=== PATIENT | female | born 1955 | race Caucasian/White ===

== ENCOUNTER 2020-02-13 04:09 | Inpatient (IN) | payer MEDICARE ==
[2020-02-13] MEDS ORDERED: KETAMINE HCL INJ 500 MG/10 ML VIAL IV ONE ×2 (04:16)
--- NOTE | 2020-02-13 04:20 | ER Document Report ---
ED Respiratory Problem - General Stated Complaint: DIFFICULTY BREATHING Time Seen by Provider: 02/13/20 04:18 Notes: Patient is a 64-year-old female who comes emergency department by EMS for chief complaint of respiratory distress. EMS reports patient was 68% oxygen sa turation on room air, diaphoretic, speaking in one-word sentences. Patient was given 125 mg Solu-Medrol, DuoNeb, 0.3 mg IM epinephrine, and placed on CPAP. Patient became listless and then stopped speaking, after she became unresponsive patient was intubated with 7.5 ET tube, she was given 70 mg of ketamine and 70 mg of succinylcholine. Patient is not on home oxygen per EMS, they were unable to provide other medical history except that patient was "seen earlier today and cardioverted out of a rhythm before being discharged home". - Related Data Allergies/Adverse Reactions: No Known Allergies Allergy (Unverified 02/13/20 06:22) Past Medical History - General Information source: Emergency Med Personnel - Social History Smoking Status: Current Every Day Smoker Lives with: Family Family History: Other - unable to ask - Past Medical History Cardiac Medical History: Reports: Hx Atrial Fibrillation Pulmonary Medical History: Reports: Hx Asthma, Hx COPD Psychiatric Medical History: Reports: Hx Anxiety Review of Systems - Review of Systems Constitutional: No symptoms reported EENT: No symptoms reported Cardiovascular: See HPI Respiratory: See HPI Gastrointestinal: No symptoms reported Genitourinary: No symptoms reported Female Genitourinary: No symptoms reported Musculoskeletal: No symptoms reported Skin: No symptoms reported Hematologic/Lymphatic: No symptoms reported Neurological/Psychological: No symptoms reported Physical Exam - Vital signs Vitals: Temp Pulse Resp BP Pulse Ox 98.6 F 79 18 83/53 L 93 02/13/20 04:10 02/13/20 04:10 02/13/20 04:10 02/13/20 04:10 02/13/20 04:10 - Notes Notes: GENERAL: Patient is intubated with bag valve respirations being performed. HEAD: Normocephalic, atraumatic. EYES: Pupils equal, round, and reactive to light NECK: Trachea midline. No lymphadenopathy. LUNGS: Clear to auscultation bilaterally, no wheezes, rales, or rhonchi. HEART: Regular rate and rhythm. No murmur ABDOMEN: Soft, non-tender. Non-distended. EXTREMITIES: No edema, normal radial and dorsalis pedis pulses bilaterally. No cyanosis. NEUROLOGICAL: Patient intubated on the ventilator SKIN: Warm, dry, normal turgor. No rashes or lesions noted. Course - Re-evaluation Re-evalutation: Patient doing well on the vent with good oxygenation with a good Pleth. Patient is not tachycardic, initial blood pressure was unremarkable but unfortunately patient became very awake, agitated, patient had to be placed in soft restraints, given ketamine, she quickly awoke from this as well, she was placed on a Versed drip and this helped but then patient became hypotensive. Dr. Carmona recommends continue Versed drip and start Levophed for pressure support, central line will be placed. Chest x-ray showing infiltrate suggesting pneumonia, ET tube in good position. CBC shows mild leukocytosis with elevation of neutrophils but no bandemia. Chemistry nonspecific. Blood gas shows respiratory acidosis with low pH and elevated CO2. Initial report was unclear if patient had been admitted to [facility] or simply cardioverted and discharged home, she was started on cefepime and vancomycin. Blood cultures pending. Lactic acid is 4.2. I spoke with daughter, she states that patient is on Xarelto, she took 1 mg Klonopin tonight to help her sleep, she states she was not drinking alcohol, did not have any symptoms before going to bed that she knew, did not have any known fevers or exposures to COVID. She states she will go home and get the rest of her medications and come back. Because patient is on a blood thinner I did place a femoral central line instead of an IJ. Called and spoke with Amadou Ayoub NP resolution expert for the ICU, patient accepted to the ICU. - Vital Signs Vital signs: Temp Pulse Resp BP Pulse Ox 98.6 F 79 18 83/53 L 95 02/13/20 04:10 02/13/20 04:10 02/13/20 04:10 02/13/20 04:10 02/13/20 05:08 - Laboratory Result Diagrams: 02/13/20 04:15 02/13/20 04:15 Laboratory results interpreted by me: 02/13/20 02/13/20 02/13/20 04:15 04:15 04:15 WBC 14.8 H Absolute Lymphs (auto) 6.4 H PT 19.0 H Carbonic Acid ABG pH ABG pCO2 ABG pO2 Potassium 5.1 H Est GFR (MDRD) Non-Af 56 L Glucose 274 H POC Glucose Lactic Acid Calcium 8.3 L AST 173 H ALT 101 H 02/13/20 02/13/20 02/13/20 04:15 04:30 04:38 WBC Absolute Lymphs (auto) PT Carbonic Acid 1.91 H ABG pH 7.17 L* ABG pCO2 63.5 H ABG pO2 109.3 H Potassium Est GFR (MDRD) Non-Af Glucose POC Glucose 248 H Lactic Acid 4.2 H Calcium AST ALT Procedures - Central Line Right femoral Central line pre-insertion: Sterile PPE donned, Chloraprep applied, Sterile drapes applied Central line lumen type: Triple Ultrasound guided: Yes Line secured with sutures: Yes Central line post-insertion: Blood return from lumens, Biopatch applied, Sutured, Sterile dressing applied Number of attempts: 1 Complications: No Critical Care Note - Critical Care Note Total time excluding time spent on procedures (mins): 40 - Respiratory failure, pneumonia, septic shock Comments: Please allow 40 minutes of critical care time for evaluation and management patient with respiratory failure, patient on vent, patient requiring sedation, patient became hypotensive and required both sedation adjustments and blood pressure support with Levophed. Time spent discussing with family member and admitting to the ICU. Discharge - Discharge Clinical Impression: Septic shock Acute respiratory failure Qualifiers: Respiratory failure complication: hypoxia and hypercapnia Qualified Code(s): J96.01 - Acute respiratory failure with hypoxia; J96.02 - Acute respiratory failure with hypercapnia Condition: Serious Disposition: ADMITTED INPATIENT Admitting Provider: Kiel (Alum Operator) - Amadou Proctor NP Unit Admitted: ICU
[2020-02-13] MEDS ORDERED: KETAMINE HCL INJ 500 MG/10 ML VIAL IV PRN (04:31)
[2020-02-13] MEDS ORDERED: NORMAL SALINE 1000 ML 1,000 ML IV ONE ×2 (04:36→04:47)
[2020-02-13 04:43] LABS: ABSOLUTE BASOPHILS # (AUTO) 0.2 10^3/uL (0.0-0.2); ABSOLUTE EOSINOPHILS # (AUTO) 0.3 10^3/uL (0.0-0.6); ABSOLUTE LYMPHOCYTES (AUTO) 6.4 10^3/uL (0.5-4.7); ABSOLUTE MONOCYTES (AUTO) 0.9 10^3/uL (0.1-1.4); ABSOLUTE NEUT (AUTO) 7.1 10^3/uL (1.7-8.2); EOSINOPHILS % (AUTO) 1.7 % (0-6); HEMOGLOBIN 13.3 g/dL (12.0-15.5); LYMPHOCYTES % (AUTO) 43.4 % (13-45); MEAN CORPUSCULAR HEMOGLOBIN 30.3 pg (27.0-33.4); MEAN CORPUSCULAR HGB CONC 32.4 g/dL (32.0-36.0); MEAN CORPUSCULAR VOLUME 94 fl (80-97); MONOCYTES % (AUTO) 6.2 % (3-13); PLATELET COUNT 364 10^3/uL (150-450); RED BLOOD COUNT 4.38 10^6/uL (3.72-5.28); RED CELL DISTRIBUTION WIDTH 13.6 % (11.5-14.0); SEGMENTED NEUTROPHILS % (AUTO) 47.7 % (42-78); TOTAL CELLS COUNTED % (AUTO) 100 %; WHITE BLOOD COUNT 14.8 10^3/uL (4.0-10.5)
[2020-02-13 04:49] LABS: INTERNATIONAL RATION (INR) 1.58
--- NOTE | 2020-02-13 04:53 | RADIOLOGY REPORT (SQ) ---
EXAM DESCRIPTION: XR CHEST 1 VIEW COMPLETED DATE/TME: 02/13/2020 04:14 CLINICAL HISTORY: 64 years, Female, SOB, post ETT COMPARISON: None. NUMBER OF VIEWS: 1 TECHNIQUE: Portable chest LIMITATIONS: None. FINDINGS: Heart size upper limits of normal. Endotracheal tube with the tip 3.4 cm above the anamika. Enteric tube, the tip extends into the stomach. No pneumothorax. Elevation of the right hemidiaphragm. Tiny right effusion and/or pleural thickening Extensive airspace opacities left hemithorax. Surgical clips left axilla. Osteopenia. IMPRESSION: Endotracheal and enteric tubes in place. Airspace opacities throughout the left hemithorax. Tiny right effusion and/or pleural thickening. copyright 2010 [employer]- All Rights Reserved
[2020-02-13] MEDS ORDERED: NOREPINEPHRINE BITARTRATE INJ/PF 4 MG/4 ML SDV IV ONE (04:54)
[2020-02-13] MEDS ORDERED: DEXTROSE 5%-WATER 250 ML with NOREPINEPHRINE BITARTRATE 4 MG IV PRN ×2 (04:55)
[2020-02-13 05:00] LABS: ARTERIAL BLOOD BASE EXCESS -6.6 mmol/L; ARTERIAL BLOOD FIO2 100%; ARTERIAL BLOOD H2CO3 1.91 mmol/L (1.05-1.35); ARTERIAL BLOOD HCO3 22.8 mmol/L (20-24); ARTERIAL BLOOD O2 SATURATION 96.6 % (94-98); ARTERIAL BLOOD PCO2 63.5 mmHg (35-45); ARTERIAL BLOOD PO2 109.3 mmHg (80-100); ARTERIAL BLOOD TOTAL CO2 24.7 mmol/L (21-25)
[2020-02-13] MEDS ORDERED: CEFEPIME 2 GM/D5W RTU 2 GM/50 ML RTUPB IV ONE (05:00)
[2020-02-13 05:02] LABS: ARTERIAL BLOOD PH 7.17 (7.35-7.45)
[2020-02-13] MEDS: MIDAZOLAM HCL 50 MG/100 ML RTUINJ IV PRN ×2 (05:09→09:52)
[2020-02-13 05:22] LABS: ALBUMIN 3.8 g/dL (3.5-5.0); ALKALINE PHOSPHATASE 86 U/L (38-126); ANION GAP 10 (5-19); ASPARTATE AMINO TRANSFERASE 173 U/L (14-36); BILIRUBIN,TOTAL 0.6 mg/dL (0.2-1.3); BLOOD UREA NITROGEN 18 mg/dL (7-20); CALCIUM 8.3 mg/dL (8.4-10.2); CARBON DIOXIDE 23 mmol/L (22-30); CHLORIDE 104 mmol/L (98-107); GLUCOSE 274 mg/dL (75-110); TOTAL PROTEIN 6.3 g/dL (6.3-8.2)
[2020-02-13 05:23] LABS: POTASSIUM 5.1 mmol/L (3.6-5.0)
[2020-02-13] MEDS ORDERED: VANCOMYCIN HCL INJ 1000 MG VIAL IV ONE (05:24)
--- NOTE | 2020-02-13 06:23 | CRITICAL CARE ADMISSION REPORT ---
HPI Date:: 02/13/20 Time:: 06:01 Reason for ICU Reason:: Respiratory Failure Admission Date/Time & PCP: Admission Date/Time: Primary Care Provider: HPI: Ms. Cheung is a 64-year-old female past medical history of asthma and atrial fibrillation on Xarelto at home status post cardioversion on 02/12/2020. Presents to the emergency department by EMS for respiratory distress. EMS reports the patient was found diaphoretic speaking in one-word sentences with an O2 saturation of 68% on room air. She was given 125 mg of Solu-Medrol, DuoNeb, and 0.3 mg of IM epinephrine and placed on CPAP. Upon arrival to the ED patient became unresponsive and subsequently was intubated with a 7.5 ET tube. She was given 70 mg of ketamine and 70 mg of succinylcholine. She was placed on propofol for sedation and became hypotensive at which time her sedation was switched to Versed drip. She remained hypotensive and started on Levophed. Her lactate in the ED was 4.2 and she was given 2 L of normal saline bolus. Chest x-ray revealed extensive airspace opacities in the left hemithorax. She was given 1 dose of vancomycin, and is admitted to the ICU for management of her sepsis. - Diagnosis/Plan (1) Sepsis Qualifiers: Sepsis type: sepsis due to unspecified organism Severe sepsis acute organ dysfunction type: acute respiratory failure Acute respiratory failure type: with hypoxia Is this a current diagnosis for this admission?: Yes Plan: Start cefepime and linezolid. Volume resuscitate Repeat lactate at 10 AM (2) Atrial fibrillation Qualifiers: Atrial fibrillation type: unspecified Qualified Code(s): I48.91 - Unspecified atrial fibrillation Is this a current diagnosis for this admission?: Yes Plan: Status post cardioversion 02/12/2020 currently normal sinus rhythm with frequent PVCs On Xarelto at home Patient is intubated will start low-dose heparin drip as clots post cardioversion is highest in the post 48 hours Past Medical History Cardiac Medical History: Reports: Atrial Fibrillation Pulmonary Medical History: Reports: Asthma, Chronic Obstructive Pulmonary Disease (COPD) Social/Family History - Social History Smoking Status: Current Every Day Smoker Review of Systems ROS unobtainable: Due to endotracheal tube Physical Exam Vital Signs: Temp Pulse Resp BP Pulse Ox 98.6 F 79 18 83/53 L 95 02/13/20 04:10 02/13/20 04:10 02/13/20 04:10 02/13/20 04:10 02/13/20 05:08 Intake & Output 02/11/20 02/12/20 02/13/20 06:59 06:59 06:59 Intake Total 1000 Balance 1000 Weight 78.018 kg Weight/Height Weight 78.018 kg Height 5 ft 5 in General appearance: PRESENT: mild distress Head exam: PRESENT: atraumatic, normocephalic Eye exam: PRESENT: other - Pupils constricted secondary to sedation Mouth exam: PRESENT: moist Neck exam: PRESENT: full ROM Respiratory exam: PRESENT: rhonchi, wheezes Cardiovascular exam: PRESENT: +S1, +S2 Pulses: PRESENT: normal radial pulses, +1 pedal pulses bilateral GI/Abdominal exam: PRESENT: normal bowel sounds Extremities exam: PRESENT: full ROM Musculoskeletal exam: PRESENT: full ROM Neurological exam: PRESENT: other - Sedated Tubes/Lines: PRESENT: Endotracheal Tube, Central Line Laboratory/Radiographs Laboratory Results: 02/13/20 04:15 02/13/20 04:15 02/13/20 02/13/20 02/13/20 04:15 04:15 04:15 WBC 14.8 H RBC 4.38 Hgb 13.3 Hct 41.0 MCV 94 MCH 30.3 MCHC 32.4 RDW 13.6 Plt Count 364 Seg Neutrophils % 47.7 Carbonic Acid HCO3/H2CO3 Ratio ABG pH ABG pCO2 ABG pO2 ABG HCO3 ABG O2 Saturation ABG Base Excess FiO2 Sodium 137.3 Potassium 5.1 H Chloride 104 Carbon Dioxide 23 Anion Gap 10 BUN 18 Creatinine 1.00 Est GFR ( Amer) > 60 Glucose 274 H Lactic Acid 4.2 H Calcium 8.3 L Total Bilirubin 0.6 AST 173 H Alkaline Phosphatase 86 Total Protein 6.3 Albumin 3.8 02/13/20 04:38 WBC RBC Hgb Hct MCV MCH MCHC RDW Plt Count Seg Neutrophils % Carbonic Acid 1.91 H HCO3/H2CO3 Ratio 11:1 ABG pH 7.17 L* ABG pCO2 63.5 H ABG pO2 109.3 H ABG HCO3 22.8 ABG O2 Saturation 96.6 ABG Base Excess -6.6 FiO2 100% Sodium Potassium Chloride Carbon Dioxide Anion Gap BUN Creatinine Est GFR ( Amer) Glucose Lactic Acid Calcium Total Bilirubin AST Alkaline Phosphatase Total Protein Albumin 02/13/20 04:15 Troponin I 0.025 Impressions: Chest X-Ray 02/13/20 04:14 IMPRESSION: Endotracheal and enteric tubes in place. Airspace opacities throughout the left hemithorax. Tiny right effusion and/or pleural thickening. copyright 2010 [employer]- All Rights Reserved All labs, radiographs, diagnostic studies and EKGs were personally reviewed: Yes In addition, reports of radiographic and diagnostic studies were read: Yes Critical Time Critical Time (minutes): 65 -: The care of a critically ill patient is dynamic. This note represents a static moment in the admission process. Orders and treatments may be given simultan eously and urgently, and time is not patient registration representative of the treatment process. This patient requires Critical Care secondary to life threatening organ or limb dysfunction. Without Critical Care services, the patient is at risk for increased mortality and morbidity.
[2020-02-13] MEDS ORDERED: HEPARIN SODIUM,PORCINE/D5W 25,000 UNIT/250 ML RTUINJ IV PRN (06:24)
[2020-02-13 07:03] LABS: URINE AMPHETAMINES SCREEN NEGATIVE; URINE BARBITURATES SCREEN NEGATIVE; URINE BENZODIAZEPINES SCREEN NEGATIVE; URINE COCAINE SCREEN NEGATIVE; URINE MARIJUANA (THC) SCREEN NEGATIVE; URINE METHADONE SCREEN NEGATIVE; URINE PHENCYCLIDINE SCREEN NEGATIVE
[2020-02-13] MEDS ORDERED: ACETAMINOPHEN 325 MG SUPP.RECT PR ONE (07:12)
[2020-02-13 07:32] LABS: INTERNATIONAL RATION (INR) 1.51; PROTHROMBIN TIME 18.4 SEC (11.4-15.4)
[2020-02-13 07:33] LABS: PARTIAL THROMBOPLASTIN TIME 28.1 SEC (23.5-35.8)
[2020-02-13 08:14] LABS: APPEARANCE,URINE CLEAR; BILIRUBIN,URINE NEGATIVE (NEGATIVE); COLOR,URINE YELLOW; GLUCOSE, URINE NEGATIVE (NEGATIVE); KETONES,URINE NEGATIVE (NEGATIVE); LEUKOCYTE ESTERASE,URINE NEGATIVE (NEGATIVE); NITRITE,URINE NEGATIVE (NEGATIVE); PROTEIN,URINE 100 mg/dL (NEGATIVE); URINE SPECIFIC GRAVITY 1.017
--- NOTE | 2020-02-13 09:17 | EKG REPORT ---
SEVERITY:- ABNORMAL ECG - SINUS RHYTHM VENTRICULAR TRIGEMINY NONSPECIFIC INTRAVENTRICULAR CONDUCTION DELAY : Confirmed by: Lonny Tena 13-Feb-2020 09:17:03
[2020-02-13] MEDS: LINEZOLID 600 MG/300 ML RTUPB IV SCH ×2 (09:51→21:34)
[2020-02-13] MEDS ORDERED: CEFEPIME 2 GM/D5W RTU 2 GM/50 ML RTUPB IV SCH (10:00)
[2020-02-13] MEDS ORDERED: PROPOFOL 1,000 MG/100 ML INFUS..BTL IV PRN (10:37)
[2020-02-13] MEDS ORDERED: (PENDING PHARMACY ID) (Dextroamphetamine/Amphetamine [Adderall 30 Mg Tablet] 30 MG) PO SCH (10:45)
[2020-02-13 10:57] LABS: ARTERIAL BLOOD BASE EXCESS -6.1 mmol/L; ARTERIAL BLOOD HCO3 20.3 mmol/L (20-24); ARTERIAL BLOOD O2 SATURATION 97.7 % (94-98); ARTERIAL BLOOD PCO2 43.3 mmHg (35-45); ARTERIAL BLOOD PH 7.29 (7.35-7.45); ARTERIAL BLOOD PO2 114.8 mmHg (80-100); ARTERIAL BLOOD TOTAL CO2 21.6 mmol/L (21-25)
[2020-02-13 11:02] LABS: ARTERIAL BLOOD FIO2 40%
[2020-02-13] MEDS ORDERED: BUPROPION HCL 100 MG TABLET PO SCH (14:00)
[2020-02-13] MEDS: DULOXETINE HCL 30 MG CAPSULE.DR PO SCH (15:08)
[2020-02-13] MEDS: RIVAROXABAN 10 MG TABLET PO SCH (15:09)
[2020-02-13] MEDS ORDERED: NORMAL SALINE 1000 ML 1,000 ML IV PRN (15:56)
[2020-02-13] MEDS ORDERED: DEXTROSE 50%-WATER 25 GM/50 ML DISP.SYRIN IV PRN ×2 (15:56)
[2020-02-13] MEDS ORDERED: GLUCAGON,HUMAN RECOMB 1 MG INJ SUBCUT PRN (15:56)
[2020-02-13] MEDS ORDERED: DEXTROSE 40% GEL 15 GM TUBE PO PRN ×2 (15:56)
[2020-02-13] MEDS ORDERED: PHARMACY COMMUNICATION ORDER MC NR (16:00)
[2020-02-13] MEDS ORDERED: ENOXAPARIN SODIUM INJ 40 MG/0.4 ML DISP.SYRIN SUBCUT SCH (16:00)
[2020-02-13] MEDS: CEFEPIME HCL 2 GM in DEXTROSE 5%-WATER 50 ML IV SCH (17:31)
[2020-02-13] MEDS ORDERED: CYCLOBENZAPRINE HCL 10 MG TABLET NG SCH (18:00)
[2020-02-13] MEDS ORDERED: CYCLOBENZAPRINE HCL 10 MG TABLET PO SCH (18:00)
[2020-02-13] MEDS: IPRATROPIUM/ALBUTEROL 0.5-2.5 MG/3 ML AMPUL NEB PRN (20:14)
[2020-02-13] MEDS ORDERED: TOLTERODINE TARTRATE 1 MG TABLET NG SCH (22:00)
[2020-02-13] MEDS ORDERED: BUPROPION HCL 100 MG TABLET NG SCH (22:00)
[2020-02-13] MEDS ORDERED: ATORVASTATIN CALCIUM 80 MG TABLET NG SCH (22:00)
[2020-02-13] MEDS ORDERED: ATORVASTATIN CALCIUM 80 MG TABLET PO SCH ×2 (22:00)
[2020-02-13] MEDS ORDERED: TOLTERODINE TARTRATE 1 MG TABLET PO SCH (22:00)
[2020-02-13] MEDS: CLONAZEPAM 1 MG TABLET PO SCH (22:03)
[2020-02-13] MEDS: BUPROPION HCL 100 MG TABLET PO SCH (22:05)
[2020-02-13] MEDS: TOLTERODINE TARTRATE 1 MG TABLET PO SCH (22:05)
[2020-02-14] MEDS: CEFEPIME HCL 2 GM in DEXTROSE 5%-WATER 50 ML IV SCH (05:48)
[2020-02-14] MEDS: BUPROPION HCL 100 MG TABLET PO SCH (05:49)
[2020-02-14] MEDS: IPRATROPIUM/ALBUTEROL 0.5-2.5 MG/3 ML AMPUL NEB PRN (06:05)
[2020-02-14 06:41] LABS: ABSOLUTE BASOPHILS # (AUTO) 0.1 10^3/uL (0.0-0.2); ABSOLUTE MONOCYTES (AUTO) 1.8 10^3/uL (0.1-1.4); BASOPHILS % (AUTO) 0.4 % (0-2); EOSINOPHILS % (AUTO) 0.1 % (0-6); HEMATOCRIT 38.1 % (36.0-47.0); HEMOGLOBIN 12.4 g/dL (12.0-15.5); MEAN CORPUSCULAR HEMOGLOBIN 29.9 pg (27.0-33.4); MEAN CORPUSCULAR HGB CONC 32.5 g/dL (32.0-36.0); MEAN CORPUSCULAR VOLUME 92 fl (80-97); MONOCYTES % (AUTO) 8.9 % (3-13); PLATELET COUNT 279 10^3/uL (150-450); RED BLOOD COUNT 4.14 10^6/uL (3.72-5.28); RED CELL DISTRIBUTION WIDTH 13.7 % (11.5-14.0); SEGMENTED NEUTROPHILS % (AUTO) 80.6 % (42-78); TOTAL CELLS COUNTED % (AUTO) 100 %; WHITE BLOOD COUNT 19.8 10^3/uL (4.0-10.5)
[2020-02-14 08:21] VITALS: BP 113/78
[2020-02-14] MEDS: RIVAROXABAN 10 MG TABLET PO SCH (09:12)
[2020-02-14] MEDS: CLONAZEPAM 1 MG TABLET PO SCH (09:13)
[2020-02-14] MEDS: TOLTERODINE TARTRATE 1 MG TABLET PO SCH (09:13)
[2020-02-14] MEDS: DULOXETINE HCL 30 MG CAPSULE.DR PO SCH (09:13)
[2020-02-14] MEDS: LINEZOLID 600 MG/300 ML RTUPB IV SCH (09:14)
[2020-02-14] MEDS ORDERED: PREDNISONE 20 MG TABLET PO ONE (09:15)
--- NOTE | 2020-02-14 09:29 | PDOC DISCHARGE SUMMARY ---
Impression - Admit/DC Date/PCP Admission Date/Primary Care Provider: 02/13/20 06:42 Discharge Date: 02/14/20 - Discharge Diagnosis (3) Atrial fibrillation Is this a current diagnosis for this admission?: Yes - Assessment Summary: This patient is a 64 yo woman with asthma who underwent an ablation for atrial fibrillation Tuesday at [facility]. She was sedated and as far as she recalls had a CXR that was clear. She does not recall aspiration but was flat and had respiratory distress later that day, called EMS and was intubated for lower mental status. No wheezing but LLL infitrate on CXR. She was quickly extubated that day after several hours and has been doing well since. Eating, walking and has a slight wheeze this AM. Will discharge on 1 week of prednisone and augmentin. She will see her primary next week. - Additional Information Resuscitation Status: Full Code Referrals: MODE WOLFE III, MD [NO LOCAL MD] - 02/19/20 1:30 pm (Wednesday February 19, 2020 @ 1330) Home Medications: Acyclovir [Acyclovir 400 mg Tablet] 400 mg PO MOWEFR 02/13/20 Atorvastatin Calcium [Lipitor 80 mg Tablet] 80 mg PO QHS 02/13/20 Bupropion HCl [Bupropion Xl] 300 mg PO DAILY 02/13/20 Clonazepam [Klonopin 1 mg Tablet] 1 mg PO DAILY 02/13/20 Cyclobenzaprine HCl [Flexeril 10 mg Tablet] 10 mg PO BID 02/13/20 Dextroamphetamine/Amphetamine [Adderall 30 mg Tablet] 30 mg PO DAILY 02/13/20 Duloxetine HCl [Cymbalta] 60 mg PO DAILY 02/13/20 Fluticasone/Umeclidin/Vilanter [Trelegy 100-62.5-25 Mcg Ellipta 14 Dose/Dpi] 1 puff IH DAILY 02/13/20 Rivaroxaban [Xarelto] 20 mg PO DAILY 02/13/20 Solifenacin Succinate 10 mg PO DAILY 02/13/20 History of Present Illiness History of Present Illness: MARILYN TUCKER is a 64 year old female with probable aspiration and asthma. Mild wheezing. Afib ablation Tuesday. Hospital Course Hospital Course: She did surprisingly well. Extubated in a few hours. Has improved in 24 hours. Mild wheeze, CXR better. To be discharged home. Physical Exam Vital Signs: Temp Pulse Resp BP Pulse Ox 97.7 F 92 16 113/78 99 02/14/20 08:20 02/14/20 08:20 02/14/20 08:20 02/14/20 08:20 02/14/20 08:20 Intake & Output 02/13/20 02/14/20 02/15/20 06:59 06:59 06:59 Intake Total 2067 642 Output Total 30 150 Balance 2037 492 Weight 78.018 kg 78 kg Results Laboratory Results: WBC 19.8 10^3/uL (4.0-10.5) H 02/14/20 06:32 RBC 4.14 10^6/uL (3.72-5.28) 02/14/20 06:32 Hgb 12.4 g/dL (12.0-15.5) 02/14/20 06:32 Hct 38.1 % (36.0-47.0) 02/14/20 06:32 MCV 92 fl (80-97) 02/14/20 06:32 MCH 29.9 pg (27.0-33.4) 02/14/20 06:32 MCHC 32.5 g/dL (32.0-36.0) 02/14/20 06:32 RDW 13.7 % (11.5-14.0) 02/14/20 06:32 Plt Count 279 10^3/uL (150-450) 02/14/20 06:32 Lymph % (Auto) 10.0 % (13-45) L 02/14/20 06:32 [place] % (Auto) 8.9 % (3-13) 02/14/20 06:32 Eos % (Auto) 0.1 % (0-6) 02/14/20 06:32 Baso % (Auto) 0.4 % (0-2) 02/14/20 06:32 Absolute Neuts (auto) 16.0 10^3/uL (1.7-8.2) H 02/14/20 06:32 Absolute Lymphs (auto) 2.0 10^3/uL (0.5-4.7) 02/14/20 06:32 Absolute Monos (auto) 1.8 10^3/uL (0.1-1.4) H 02/14/20 06:32 Absolute Eos (auto) 0.0 10^3/uL (0.0-0.6) 02/14/20 06:32 Absolute Basos (auto) 0.1 10^3/uL (0.0-0.2) 02/14/20 06:32 Seg Neutrophils % 80.6 % (42-78) H 02/14/20 06:32 PT 18.4 SEC (11.4-15.4) H 02/13/20 07:14 INR 1.51 02/13/20 07:14 APTT 27.2 SEC (23.5-35.8) 02/13/20 13:20 Carbonic Acid 1.30 mmol/L (1.05-1.35) 02/13/20 10:43 HCO3/H2CO3 Ratio 15:1 02/13/20 10:43 ABG pH 7.29 (7.35-7.45) L 02/13/20 10:43 ABG pCO2 43.3 mmHg (35-45) 02/13/20 10:43 ABG pO2 114.8 mmHg (80-100) H 02/13/20 10:43 ABG HCO3 20.3 mmol/L (20-24) 02/13/20 10:43 ABG Total CO2 21.6 mmol/L (21-25) 02/13/20 10:43 ABG O2 Saturation 97.7 % (94-98) 02/13/20 10:43 ABG Base Excess -6.1 mmol/L 02/13/20 10:43 FiO2 40% 02/13/20 10:43 Sodium 137.3 mmol/L (137-145) 02/13/20 04:15 Potassium 5.1 mmol/L (3.6-5.0) H 02/13/20 04:15 Chloride 104 mmol/L (98-107) 02/13/20 04:15 Carbon Dioxide 23 mmol/L (22-30) 02/13/20 04:15 Anion Gap 10 (5-19) 02/13/20 04:15 BUN 18 mg/dL (7-20) 02/13/20 04:15 Creatinine 1.00 mg/dL (0.52-1.25) 02/13/20 04:15 Est GFR ( Amer) > 60 (>60) 02/13/20 04:15 Est GFR (MDRD) Non-Af 56 (>60) L 02/13/20 04:15 Glucose 274 mg/dL (75-110) H 02/13/20 04:15 POC Glucose 248 mg/dL (70-110) H 02/13/20 04:30 Lactic Acid 1.8 mmol/L (0.7-2.1) 02/13/20 10:20 Calcium 8.3 mg/dL (8.4-10.2) L 02/13/20 04:15 Total Bilirubin 0.6 mg/dL (0.2-1.3) 02/13/20 04:15 Direct Bilirubin 0.0 mg/dL (0.0-0.4) 02/13/20 04:15 Neonat Total Bilirubin Not Reportable 02/13/20 04:15 Neonat Direct Bilirubin Not Reportable 02/13/20 04:15 Neonat Indirect Bili Not Reportable 02/13/20 04:15 AST 173 U/L (14-36) H 02/13/20 04:15 ALT 101 U/L (<35) H 02/13/20 04:15 Alkaline Phosphatase 86 U/L (38-126) 02/13/20 04:15 Troponin I 0.025 ng/mL 02/13/20 04:15 Total Protein 6.3 g/dL (6.3-8.2) 02/13/20 04:15 Albumin 3.8 g/dL (3.5-5.0) 02/13/20 04:15 Random Cortisol 77.30 ug/dL (None Established) 02/13/20 08:35 Urine Color YELLOW 02/13/20 04:47 Urine Appearance CLEAR 02/13/20 04:47 Urine pH 5.0 (5.0-9.0) 02/13/20 04:47 Ur Specific [place] 1.017 02/13/20 04:47 Urine Protein 100 mg/dL (NEGATIVE) H 02/13/20 04:47 Urine Glucose (UA) NEGATIVE mg/dL (NEGATIVE) 02/13/20 04:47 Urine Ketones NEGATIVE mg/dL (NEGATIVE) 02/13/20 04:47 Urine Blood NEGATIVE (NEGATIVE) 02/13/20 04:47 Urine Nitrite NEGATIVE (NEGATIVE) 02/13/20 04:47 Urine Bilirubin NEGATIVE (NEGATIVE) 02/13/20 04:47 Urine Urobilinogen 2.0 mg/dL (<2.0) H 02/13/20 04:47 Ur Leukocyte Esterase NEGATIVE (NEGATIVE) 02/13/20 04:47 Urine WBC (Auto) 1 /HPF 02/13/20 04:47 Urine RBC (Auto) 2 /HPF 02/13/20 04:47 Urine Bacteria (Auto) TRACE /HPF 02/13/20 04:47 Squamous Epi Cells Auto <1 /HPF 02/13/20 04:47 Urine Mucus (Auto) RARE /LPF 02/13/20 04:47 Urine Ascorbic Acid NEGATIVE (NEGATIVE) 02/13/20 04:47 Urine Opiates Screen NEGATIVE 02/13/20 04:47 Urine Methadone Screen NEGATIVE 02/13/20 04:47 Ur Barbiturates Screen NEGATIVE 02/13/20 04:47 Ur Phencyclidine Scrn NEGATIVE 02/13/20 04:47 Ur Amphetamines Screen NEGATIVE 02/13/20 04:47 U Benzodiazepines Scrn NEGATIVE 02/13/20 04:47 Urine Cocaine Screen NEGATIVE 02/13/20 04:47 U Marijuana (THC) Screen NEGATIVE 02/13/20 04:47 02/13/20 04:15 Troponin I 0.025 EKG Comments: NSR Impressions: Chest X-Ray 02/13/20 04:14 IMPRESSION: Endotracheal and enteric tubes in place. Airspace opacities throughout the left hemithorax. Tiny right effusion and/or pleural thickening. copyright 2011 [employer]- All Rights Reserved Plan Health Concerns: Possible worsening of asthma Plan of Treatment: Follow up with Mode Wolfe MD on Sunday 02/18 at 10:30 AM. Goals: Back to respiratory baseline next week. Critical Time: 35 Level of Care: MEDICAL Stroke Is this a Stroke Patient?: No Acute Heart Failure - Is this a Heart Failure Patient?: No
[2020-02-14] MEDS ORDERED: SOLIFENACIN SUCCINATE 10 MG PO SCH (10:00)
[2020-02-14] MEDS ORDERED: CLONAZEPAM 1 MG TABLET NG SCH (10:00)
[2020-02-14] MEDS ORDERED: CLONAZEPAM 1 MG TABLET PO SCH ×2 (10:00)
[2020-02-14] MEDS ORDERED: (PENDING PHARMACY ID) (Bupropion Hcl [Bupropion Xl] 300 MG) PO SCH (10:00)
[2020-02-14] MEDS ORDERED: CYCLOBENZAPRINE HCL 10 MG TABLET PO SCH (10:00)
[2020-02-14] MEDS ORDERED: FLUTICASONE/UMECLIDIN/VILANTER 100-62.5-25 MCG/DOSE IH SCH (10:00)
--- NOTE | 2020-02-14 10:36 | RADIOLOGY REPORT (SQ) ---
EXAM DESCRIPTION: CHEST SINGLE VIEW IMAGES COMPLETED DATE/TIME: 02/14/2020 8:28 am REASON FOR STUDY: Follow up for L sided infiltrate. COMPARISON: 02/13/2020 NUMBER OF VIEWS: One view. TECHNIQUE: Single frontal radiographic image of the chest acquired. LIMITATIONS: None. FINDINGS: LUNGS AND PLEURA: Improved aeration left lung with residual left lower lobe airspace disea se. No pneumothorax. MEDIASTINUM AND HEART: Stable heart size and mediastinal structures. SUPPORT DEVICES: Interval removal of endotracheal and nasogastric tubes. BONY STRUCTURES: No acute findings. HARDWARE: None. OTHER: No other significant finding. IMPRESSION: Interval improvement status post extubation. Reading location - IP/workstation name: [email or web address]
[2020-02-15] MEDS ORDERED: ACYCLOVIR 200 MG CAPSULE NG SCH (10:00)
[2020-02-15] MEDS ORDERED: ACYCLOVIR 200 MG CAPSULE PO SCH ×2 (10:00)
== END 2020-02-14 12:20 | disposition home or self-care (01) | DRG 208 ==
LOC: ER 04:09 → EH 06:42 → ICU 08:22
PROVIDERS: ADMIT Anesthesiology; ATTEND Anesthesiology
PROC: 5A1935Z Respiratory Ventilation, Less than 24 Consecutive Hours (ICD-10-PCS; principal; 2020-02-13)
PROC: 0BH17EZ Insertion of Endotracheal Airway into Trachea, Via Natural or Artificial Opening (ICD-10-PCS; 2020-02-13)
PROC: 04HK33Z Insertion of Infusion Device into Right Femoral Artery, Percutaneous Approach (ICD-10-PCS; 2020-02-13)
DX: J96.00 Acute respiratory failure, unspecified whether with hypoxia or hypercapnia (principal); J44.9 Chronic obstructive pulmonary disease, unspecified; I48.91 Unspecified atrial fibrillation; F41.9 Anxiety disorder, unspecified; F17.200 Nicotine dependence, unspecified, uncomplicated; Z79.01 Long term (current) use of anticoagulants; Z79.51 Long term (current) use of inhaled steroids; Z79.899 Other long term (current) drug therapy
CPT/HCPCS: 36415; 71045; 80053; 80307; 81001; 82533; 82803; 82962; 83605; 84484; 85025; 85610; 85730; 87040; 87086; 93005; 93010; 94002; 94640; 99238; 99291; J0692; J2020; J2250; J3370; J3490; J7030; J7060; J7512